=== PATIENT | female | born 1950 | race Two or more races ===

== ENCOUNTER 2017-01-21 21:53 | Emergency (ER) | payer OTHER ==
[~2017-01-21] VITALS: Ht 152.4 cm; Wt 52.2 kg
--- NOTE | 2017-01-21 22:00 | NUR ---
TO BED 66 YO FEMALE PT BIBA#[id number] PT STATES SHE HAS VERTIGO AND HAS BEEN VOMITING FROM DIZZINESS. VSS. NONDIAPHORETIC. GOWNED. SAFETY AND COMFORT MEASURES RENDERED. AWAITING FOR ER MD ROMANO.
--- NOTE | 2017-01-21 22:30 | NUR ---
Dr Cruz at bedside for eval.
[2017-01-21] MEDS ORDERED: ONDANSETRON HCL/PF 4 MG/2 ML VIAL ONE (22:49)
[2017-01-21] MEDS ORDERED: DIAZEPAM 5 MG/ML 2 ML DISP.SYRIN ONE (22:51)
[2017-01-21] MEDS ORDERED: DIAZEPAM 5 MG/ML 2 ML DISP.SYRIN IM ONE (23:00)
[2017-01-21] MEDS ORDERED: ONDANSETRON HCL/PF 4 MG/2 ML VIAL IV ONE (23:00)
[2017-01-21] MEDS ORDERED: IV NS 0.9% 1,000 ML BAG IV ONE (23:00)
[2017-01-22] MEDS ORDERED: DIAZEPAM 5 MG/ML 2 ML DISP.SYRIN ONE (00:23)
[2017-01-22] MEDS ORDERED: DIAZEPAM 5 MG/ML 2 ML DISP.SYRIN IV ONE (00:30)
--- NOTE | 2017-01-22 01:29 | NUR ---
Patient discharged to home in stable condition. Written and verbal after care instructions given. Patient verbalizes understanding of instruction. Patient ambulated to car with assist, reports feeling better. No further complaints.
[2017-01-22 01:31] VITALS: BP 128/74
== END 2017-01-22 01:34 | disposition home or self-care (01) ==
LOC: ER 21:54
DX: H81.399 Other peripheral vertigo, unspecified ear (principal)
CPT/HCPCS: 96372; 96374; 96375; 99284; A4606; J2405; J3360 ×2; J7030 ×2; Z7610